=== PATIENT | male | born 1980 | race African-American/Black ===

== ENCOUNTER 2016-12-27 20:09 | Emergency (ER) | payer MEDICAID ==
[~2016-12-27] VITALS: Ht 175.3 cm; Wt 86.2 kg
[2016-12-27 21:19] VITALS: BP 127/91
[2016-12-27] MEDS ORDERED: IBUPROFEN600 MG ORAL (21:37)
[2016-12-27] MEDS ORDERED: ROBAXIN-750750 MG PO (21:37)
[2016-12-27 22:16] VITALS: BP 142/88
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
== END 2016-12-27 22:16 | disposition home or self-care (01) ==
LOC: EMR 21:30
DX: M25.511 Pain in right shoulder (principal); M25.562 Pain in left knee
CPT/HCPCS: 99284